=== PATIENT | male | born 1975 | race Caucasian/White ===

== ENCOUNTER 2017-03-11 14:53 | Emergency (ER) | payer MEDICAID ==
[~2017-03-11] VITALS: Ht 182.9 cm; Wt 90.0 kg
[2017-03-11 14:57] VITALS: Ht 182.9 cm; Wt 90.0 kg
[2017-03-11] MEDS ORDERED: LIDOCAINE 2% (MDV) 20 ML INJ INJ ONE (15:30)
[2017-03-11] MEDS ORDERED: CEFAZOLIN 2 GM/50 ML (PMX) 50 ML IVPB ONE (15:30)
[2017-03-11] MEDS ORDERED: morphine 10 MG INJ IV ONE (15:30)
[2017-03-11] MEDS ORDERED: ONDANSETRON 4 MG INJ IV ONE (15:30)
[2017-03-11 15:42] LABS: ADD SCAN DIFF NO
[2017-03-11 15:44] LABS: BASOPHILS % 0.4 % (0.0-2.0); EOSINOPHILS # 0.1 10^3/ul (0.0-0.5); HEMATOCRIT 46.6 % (42.0-52.0); HEMOGLOBIN 15.6 g/dl (14.0-18.0); LYMPHOCYTES # 1.8 10^3/ul (0.8-2.9); LYMPHOCYTES % 22.3 % (15.0-51.0); MEAN CORPUSCULAR HEMOGLOBIN 30.1 pg (29.0-33.0); MEAN CORPUSCULAR HGB CONC 33.5 g/dl (32.0-37.0); MEAN PLATELET VOLUME 10.1 fl (7.4-10.4); MONOCYTE # 0.5 10^3/ul (0.3-0.9); MONOCYTES % 6.9 % (0.0-11.0); NEUTROPHIL # 5.4 10^3/ul (1.6-7.5); NEUTROPHILS % 68.9 % (39.0-77.0); PLATELET COUNT 301 10^3/UL (140-415); RED BLOOD COUNT 5.18 10^6/ul (4.70-6.10); WHITE BLOOD COUNT 7.8 10^3/ul (4.8-10.8)
--- NOTE | 2017-03-11 15:46 | ERA ---
ER Documentation Chief Complaint Date/Time DATE: 03/11/17 TIME: 15:46 Chief Complaint RIGHT MIDDLE FINGER LAC WITH BONE EXPOSURE HPI 41-year-old male, [id number] with a history of hypertension presents to the ED for evaluation of a laceration of the left long finger while operating a table saw just prior to arrival. Complains of moderate pain with mild bleeding. Denies numbness or tingling of the distal aspect of the digit. No other injuries. ROS All systems reviewed and are negative except as per history of present illness. PMhx/Soc Reviewed in chart. As per HPI. Last tetanus immunization approximately 1 year ago. Medical and Surgical Hx: pt denies Surgical Hx Hx Cardiac Disorders: Yes (HTN) Hx Alcohol Use: Yes Hx Substance Use: No Hx Tobacco Use: No Smoking Status: Never smoker FmHx No stroke or cancer Physical Exam Vitals Vital Signs Date Time Temp Pulse Resp B/P Pulse Ox O2 Delivery O2 Flow Rate FiO2 03/11/17 18:08 98.2 72 18 117/79 97 Room Air 03/11/17 16:32 98.0 70 18 113/73 96 Room Air 03/11/17 14:57 98.2 87 18 139/79 99 Physical Exam Const: Alert, moderate distress due to pain. Head: Atraumatic Eyes: Normal Conjunctiva ENT: Normal External Ears, Nose and Mouth. Neck: Full range of motion. Nontender. Resp: Clear to auscultation bilaterally Cardio: Regular rate and rhythm, no murmurs Abd: Soft, non tender, non distended. Normal bowel sounds Skin: No petechiae or rashes Back: No midline or flank tenderness Ext: Left hand: Long finger: On the dorsal aspect there is a laceration extending from the ulnar mid proximal phalanx through the joint crease to the distal radial aspect of the middle phalanx. There is exposed bone and gross deformity. Mild bleeding. Distal sensation is normal. Capillary refill is brisk. Neur: Awake and alert Psych: Normal Mood and Affect Result Diagram: 03/11/17 1433 03/11/17 1433 Results 24 hrs Laboratory Tests Test 03/11/17 14:33 White Blood Count 7.810^3/ul Red Blood Count 5.1810^6/ul Hemoglobin 15.6g/dl Hematocrit 46.6% Mean Corpuscular Volume 90.0fl Mean Corpuscular Hemoglobin 30.1pg Mean Corpuscular Hemoglobin Concent 33.5g/dl Red Cell Distribution Width 13.0% Platelet Count 51486^3/UL Mean Platelet Volume 10.1fl Neutrophils % 68.9% Lymphocytes % 22.3% Monocytes % 6.9% Eosinophils % 1.0% Basophils % 0.4% Nucleated Red Blood Cells % 0.0/100WBC Neutrophils # 5.410^3/ul Lymphocytes # 1.810^3/ul Monocytes # 0.510^3/ul Eosinophils # 0.110^3/ul Basophils # 0.010^3/ul Nucleated Red Blood Cells # 0.010^3/ul Prothrombin Time 13.2Sec Prothrombin Time Ratio 1.0 INR International Normalized Ratio 1.00 Activated Partial Thromboplast Time 25.3Sec Sodium Level 144mmol/L Potassium Level 3.7mmol/L Chloride Level 112mmol/L Carbon Dioxide Level 28mmol/L Anion Gap 8 Blood Urea Nitrogen 17mg/dl Creatinine 0.99mg/dl Glucose Level 139mg/dl Calcium Level 9.2mg/dl Current Medications Medications (Trade) Dose Ordered Sig/Varsha Route PRN Reason Start Time Stop Time Status Last Admin Dose Admin Morphine Sulfate (morphine) 4 mg ONCE ONCE IV 03/11/17 15:30 03/11/17 15:31 DC 03/11/17 15:33 Ondansetron HCl 4 mg 4 mg ONCE ONCE IV 03/11/17 15:30 03/11/17 15:31 DC 03/11/17 15:33 Cefazolin Sodium/ Dextrose (Ancef 2 Gm/50 ml (Pmx)) 50 ml @ 100 mls/hr ONCE ONCE IVPB 03/11/17 15:30 03/11/17 15:59 DC 03/11/17 16:27 Lidocaine (Xylocaine 2% (Mdv) 20 ml) 20 ml ONCE ONCE INJ 03/11/17 15:30 03/11/17 15:31 DC AMENDMENT: 03/11/2017 4:03:26 PM Madi Correa MD These findings were discussed with Enrrique Marinelli over the phone on 03/11 at 4:03 PM . PROCEDURE: XR thumb CLINICAL INDICATION: Pain TECHNIQUE: AP, oblique and lateral views of the left middle digit were obtained. COMPARISON: No prior studies are available for comparison. FINDINGS: There is a fracture/dislocation of the third middle phalanx which is displaced dorsally and ulnarly with respect to the proximal phalanx. Several millimeters of overriding are noted. Fracture fragments are identified in the adjacent soft tissues. There is normal osseous mineralization. RPTAT: AA IMPRESSION: Comminuted fracture/dislocation of the third middle phalanx, as above. Raymond Correa Physician Date Time Electronically viewed and signed by Raymond Correa Physician on 03/11/2017 16:03 RA/ Procedures/MDM DOCUMENTS REVIEWED: ED nurse, no prior records available PROCEDURES: Digital block: Proximal aspect of the left long finger is prepped with Betadine. Digital block is performed with a total of 5 cc 2% lidocaine without epinephrine. Laceration Repair by me: Anesthesia: 2% lidocaine digital block. Location: Left long finger Tendon/Joint/Bone/Nerves: Open fracture with exposed bone. Distal sensation is normal Foreign body: None detected after copious irrigation and exploration Technique: 7, 6-0 nylon simple Interrupted Sutures Complexity: No subcutaneous sutures/mucosal repair/ edge excision Post Closure Length: 7 cm Patient's bleeding was easily controlled in the department and there is no indication of anemia. ED COURSE: Normal saline 1 L. Ancef 2 g IV piggyback. Morphine 4 mg/Zofran 4 mg IV [employer] MAKIN-year-old male, [id number] with a history of hypertension presents to the ED for evaluation of a laceration of the left long finger while operating a table saw just prior to arrival. Patient sustained a comminuted fracture/dislocation of the third middle phalanx with displacement. The wound was irrigated copiously. Fracture was reduced as well as possible and the skin is closed with 7, 4-0 nylon sutures. Patient will need urgent hand surgical intervention for which he will be transferred to [facility] by [facility]. Accepted by Dr Arteaga at 17:00 Counseled patient regarding diagnosis, diagnostic results and plan for admission. Departure Diagnosis: Primary Impression: Open fracture dislocation of finger Qualified Code: S62.609B - Open fracture dislocation of finger, initial encounter Condition: Serious (Disposition: Transfer to [facility]) ENRRIQUE BROWN MD March 11, 2017 15:46
--- NOTE | 2017-03-11 15:56 | RADRPT ---
PROCEDURE: XR Chest. CLINICAL INDICATION: Trauma TECHNIQUE: Single AP view of the chest was obtained. COMPARISON: None FINDINGS: There are low lung volumes. There is mild cardiomegaly with prominence of interstitial markings, likely due to congestive change s and / or vascular crowding. There is no significant pleural effusion or pneumothorax. Osseous and soft tissue structures are unremarkable. IMPRESSION: Low lung volumes and mild cardiomegaly with prominence of interstitial markings, likely due to conge stive changes and / or vascular crowding. No focal infiltrates or effusions. RPTAT: EE Physician Rayshawn Date Time Electronically viewed and signed by Raymond Correa Physician on 03/11/2017 15:55 RA/
[2017-03-11 15:58] LABS: PROTIME 13.2 Sec (12.2-14.2)
--- NOTE | 2017-03-11 15:58 | RADRPT ---
AMENDMENT: 03/11/2017 4:03:26 PM Madi Correa MD These findings were discussed with Sharif Marinelli over the phone on 03/11/2017 at 4:03 PM . PROCEDURE: XR thumb CLINICAL INDICATION: Pain TECHNIQUE: AP, oblique and lateral views of the left middle digit were obtained. COMPARISON: No prior studies are available for comparison. FINDINGS: There is a fracture/dislocation of the third middle phalanx which is displaced dorsally and ulnarly with respect to the proximal phalanx. Several millimeters of overriding are noted. Fracture fragme nts are identified in the adjacent soft tissues. There is normal osseous mineralization. RPTAT: AA IMPRESSION: Comminuted fracture/dislocation of the third middle phalanx, as above. Physician Rayshawn Date Time Electronically viewed and signed by Raymond Correa Physician on 03/11/2017 16:03 /
[2017-03-11 15:59] LABS: PARTIAL THROMBOPLASTIN TIME 25.3 Sec (25.0-35.0)
[2017-03-11 16:44] LABS: POTASSIUM 3.7 mmol/L (3.5-5.1)
[2017-03-11 16:47] LABS: CREATININE 0.99 mg/dl (0.61-1.24)
[2017-03-11 16:48] LABS: CALCIUM 9.2 mg/dl (8.4-10.2)
[2017-03-11 18:08] VITALS: BP 117/79; PULSE 72; RESP 18; TEMP 98.2
--- NOTE | 2017-03-11 18:27 | RADRPT ---
PROCEDURE: XR Finger. CLINICAL INDICATION: Reduction TECHNIQUE: 3 views of the left third finger are available for review. COMPARISON: 03:26 p.m. FINDINGS: There has been successful reduction of the third middle phalanx at the PIP joint. There is a persis tently displaced and angulated fracture of the radial aspect of the third proximal phalanx with post erior angulation of the distal fragment. Overlying soft tissue swelling is noted. IMPRESSION: 1. Successful reduction of the third middle phalanx at the PIP joint. 2. Persistently displaced and angulated fracture at the distal and ulnar aspect of the third proxim al phalanx. RPTAT: EE .Will Jaime MD, Date Time Electronically viewed and signed by .Will Jaime MD, MD on 03/11/2017 18:27 .d/
== END 2017-03-11 18:32 | disposition short-term general hospital (02) ==
LOC: E/R 14:53
DX: S62.623B Displaced fracture of middle phalanx of left middle finger, initial encounter for open fracture (principal); I10 Essential (primary) hypertension; W31.2XXA Contact with powered woodworking and forming machines, initial encounter; Y92.9 Unspecified place or not applicable
CPT/HCPCS: 12002; 71010; 73140; 80048; 85025; 85610; 85730; 96374; 96375; J0690; J2270; J2405; Z7502; Z7610